=== PATIENT | female | born 2000 | race Caucasian/White ===

== ENCOUNTER → 2020-05-12 16:10 | Outpatient (CLI) | payer BC, SELFPAY ==
--- NOTE | 2020-05-12 16:12 | DI.RAD.S_ITS ---
PROCEDURE: XR ANKLE RT MIN 3V INDICATIONS: right ankle pain TECHNIQUE: 3 views of the ankle were acquired. COMPARISON: None. FINDINGS: Bones: No fractures or dislocations. Ankle mortise is normally aligned. No suspicious bony lesions. Soft tissues: No tibiotalar joint effusion. Achilles tendon appears normal. IMPRESSION: No acute ankle fracture or dislocation. Dictated by: Ozzy Francois M.D. on 05/12/2020 at 16:26 Approved by: Ozzy Francois M.D. on 05/12/2020 at 16:27
== END ==
PROVIDERS: Referring Provider Physician Assistant; Visit Provider Physician Assistant
DX: M25.571 Pain in right ankle and joints of right foot (principal)
CPT/HCPCS: 73610

== ENCOUNTER → 2021-05-25 09:24 | Outpatient (CLI) | payer BC, SELFPAY ==
[2021-05-25 10:12] LABS: COVID19 -Nasal RAPID Negative (Negative)
== END ==
PROVIDERS: Visit Provider Nurse Practitioner Family
DX: Z20.822 Contact with and (suspected) exposure to COVID-19 (principal)
CPT/HCPCS: 87635

== ENCOUNTER → 2023-09-15 15:25 | Outpatient (CLI) | payer BC, SELFPAY ==
[2023-09-15 20:15] LABS: Appearance Urine UA CLEAR; Bilirubin Urine UA NEGATIVE (NEGATIVE); Color Urine UA YELLOW; Glucose Urine UA NEGATIVE (Negative); Ketones Urine UA NEGATIVE (NEGATIVE); Leukocyte Esterase Urine UA NEGATIVE (NEGATIVE); Nitrite Urine UA NEGATIVE (Negative); Occult Blood Urine UA NEGATIVE (Negative); Protein Urine UA NEGATIVE (Negative); Specific Gravity Urine UA 1.025 (1.000-1.035); Urobilinogen Urine UA 0.2 E.U./dL (0.2)
== END ==
PROVIDERS: Visit Provider Student in an Organized Health Care Education/Training Program
DX: Z34.80 Encounter for supervision of other normal pregnancy, unspecified trimester (principal)
CPT/HCPCS: 81003; 87086

== ENCOUNTER → 2023-09-15 16:36 | Outpatient (CLI) | payer BC, SELFPAY ==
--- NOTE | 2023-09-15 16:37 | DI.US.S_ITS ---
PROCEDURE: US OB <= 14 WEEKS FETUS INDICATIONS: Dating US OUTSIDE/PRIOR DATING DATA: Last menstrual period (LMP): 07/09/2023. LMP-based estimated date of delivery (GUY): 04/14/2024. First dating scan (date and location): 09/15/2023. Estimated date of delivery (GUY) from first dating scan: 04/12/2024. TECHNIQUE: Real-time scanning was performed of the fetus and maternal pelvic organs, with image documentation. Endovaginal scanning was also performed to better visualize the fetus and maternal ovaries. COMPARISON: None. FINDINGS: Embryo: A live IUP is present. The estimated gestational age is 10 weeks 0 day based on crown-rump length. A normal appearing yolk sac is present. Heart rate: 173 Maternal organs: There is a 2.2 cm simple cyst in right ovary. A 4.6 cm simple cyst is seen in the left ovary. Both ovaries demonstrate vascularity on Doppler ultrasound. IMPRESSION: 1. A single living intrauterine gestation with an estimated gestational age of 10 weeks 0 day. Ultrasound dating concordant with clinical dating. 2. Bilateral simple cysts in ovaries. We strive to produce accurate, complete, and clear reports of imaging services. To assist us in improving patient care, this report was composed using standard report templates and voice recognition software. Therefore, it may contain abnormal punctuation, insertions and/or omissions. Occasional wrong-word or sound-alike substitutions may occur. Though we review the report and make efforts to correct it, we do recommend that the report be read carefully in proper context to recognize any text inaccuracies. Dictated by: María Elena Cooper M.D. on 09/16/2023 at 11:32 Approved by: María Elena Cooper M.D. on 09/16/2023 at 11:37
== END ==
PROVIDERS: Referring Provider Student in an Organized Health Care Education/Training Program; Visit Provider Student in an Organized Health Care Education/Training Program
DX: N83.292 Other ovarian cyst, left side; O34.81 Maternal care for other abnormalities of pelvic organs, first trimester; N83.291 Other ovarian cyst, right side; Z3A.10 10 weeks gestation of pregnancy
CPT/HCPCS: 76801; 76817; 81003; 87086; 93976

== ENCOUNTER → 2023-10-18 10:30 | Outpatient (CLI) | payer BC, SELFPAY ==
[2023-10-18 12:03] LABS: Add Manual Diff / Slide Review NO; Basophils Absolute Auto 0 /uL (0-100); Basophils Percent Auto 0.4 % (0-2); Eosinophils Absolute Auto 200 /uL (0-450); Eosinophils Percent Auto 1.8 % (2-4); Hematocrit 34.9 % (36-46); Lymphocytes Absolute Auto 2300 /uL (1100-4500); Mean Corpuscular HGB Conc 34.4 % (30-36); Mean Corpuscular Volume 78.4 fL (80-100); Monocytes Absolute Auto 500 /uL (0-900); Neutrophils Absolute Auto 8500 /uL (1500-7000); Neutrophils Percent Auto 73.8 % (50-75); Platelet Count 309 X10^3/uL (150-400); Red Blood Cell Count 4.45 X10^6/uL (4.0-5.2); White Blood Cell Count 11.6 X10^3/uL (4.5-11.0)
[2023-10-18 13:03] LABS: Alanine Aminotransferase 21 IU/L (<35); Albumin 3.9 g/dL (3.5-5.0); Alkaline Phosphatase 77 U/L (38-126); Aspartate Aminotransferase 24 IU/L (14-36); BUN Creatinine Ratio 12.3 (6-22); Bilirubin Total 0.4 mg/dL (0.2-1.3); Blood Urea Nitrogen 8 mg/dL (7-17); Calcium 9.5 mg/dL (8.4-10.2); Carbon Dioxide 23 mmol/L (22-32); Chloride 104 mmol/L (98-107); Estimated Glomerular Filt Rate > 60 mL/min (>60); Globulin 3.9 g/dL (1.7-4.1); Glucose 96 mg/dL (70-100); HEMOLYSIS < 15 (0-50); Potassium 3.7 mmol/L (3.4-5.1); Sodium 136 mmol/L (137-145); Total Protein 7.8 g/dL (6.3-8.2)
[2023-10-18 13:34] LABS: Urine Chlamydia NOT DETECTED; Urine N gonorrhoeae NOT DETECTED
[2023-10-19 05:51] LABS: RPR Screen Non Reactive (Non Reactive)
[2023-10-19 09:17] LABS: Varicella IgG Antibody 292 index (Immune >165)
[2023-10-20 16:14] LABS: HIV 1 & 2 Ab/Ag 4th Gen Combo NEGATIVE (NEGATIVE); Hep C Virus Ab w/Reflex Quant NEGATIVE s/c (NEGATIVE); Hepatitis B Surface Antigen NEGATIVE s/c (NEGATIVE); Rubella Antibody IgG 47.6 IU/mL (>15)
== END ==
LOC: LAB 10:32
PROVIDERS: Referring Provider Student in an Organized Health Care Education/Training Program; Visit Provider Student in an Organized Health Care Education/Training Program
DX: O10.919 Unspecified pre-existing hypertension complicating pregnancy, unspecified trimester (principal); Z3A.10 10 weeks gestation of pregnancy; Z13.79 Encounter for other screening for genetic and chromosomal anomalies; Z31.438 Encounter for other genetic testing of female for procreative management; Z36.0 Encounter for antenatal screening for chromosomal anomalies
CPT/HCPCS: 36415; 80053; 80055; 86787; 86803; 86850; 86900; 86901; 87389; 87491; 87591

== ENCOUNTER → 2023-11-28 12:46 | Outpatient (CLI) | payer OTHER, MEDICAID, SELFPAY ==
[2023-11-28 13:56] LABS: Add Manual Diff / Slide Review NO; Basophils Absolute Auto 0 /uL (0-100); Basophils Percent Auto 0.3 % (0-2); Eosinophils Absolute Auto 200 /uL (0-450); Eosinophils Percent Auto 1.7 % (2-4); Hematocrit 34.2 % (36-46); Hemoglobin 11.3 g/dL (12.0-16.0); Lymphocytes Absolute Auto 2600 /uL (1100-4500); Lymphocytes Percent Auto 20.6 % (25-40); Mean Corpuscular HGB Conc 33.2 % (30-36); Mean Corpuscular Hemoglobin 25.9 PG (26-34); Mean Corpuscular Volume 77.8 fL (80-100); Monocytes Absolute Auto 500 /uL (0-900); Monocytes Percent Auto 4.3 % (3-14); Neutrophils Absolute Auto 9100 /uL (1500-7000); Neutrophils Percent Auto 73.1 % (50-75); Platelet Count 308 X10^3/uL (150-400); Red Blood Cell Count 4.39 X10^6/uL (4.0-5.2); White Blood Cell Count 12.4 X10^3/uL (4.5-11.0)
[2023-11-28 14:23] LABS: Alanine Aminotransferase 16 IU/L (<35); Albumin 3.5 g/dL (3.5-5.0); Alkaline Phosphatase 94 U/L (38-126); Aspartate Aminotransferase 17 IU/L (14-36); BUN Creatinine Ratio 8.3 (6-22); Bilirubin Total 0.4 mg/dL (0.2-1.3); Blood Urea Nitrogen 6 mg/dL (7-17); Calcium 9.1 mg/dL (8.4-10.2); Carbon Dioxide 25 mmol/L (22-32); Chloride 107 mmol/L (98-107); Estimated Glomerular Filt Rate > 60 mL/min (>60); Globulin 3.4 g/dL (1.7-4.1); Glucose 78 mg/dL (70-100); HEMOLYSIS < 15 (0-50); Potassium 3.9 mmol/L (3.4-5.1); Sodium 137 mmol/L (137-145); Total Protein 6.9 g/dL (6.3-8.2)
[2023-11-28 15:50] LABS: Creatinine Urine Random 134.6 mg/dL; Protein (Total) Urine Random 15 mg/dL (0-12); Protein Creatinine Ratio Urine 0.11 GRAM/24H
== END ==
PROVIDERS: Referring Provider Family Medicine; Visit Provider Family Medicine
DX: O10.919 Unspecified pre-existing hypertension complicating pregnancy, unspecified trimester (principal)
CPT/HCPCS: 36415; 80053; 82570; 84156; 85025

== ENCOUNTER → 2023-12-07 11:56 | Outpatient (CLI) | payer OTHER, MEDICAID, SELFPAY ==
--- NOTE | 2023-12-07 11:57 | DI.US.S_ITS ---
PROCEDURE: US OB >= 14 WEEKS FETUS INDICATIONS: ANATOMY OUTSIDE/PRIOR DATING DATA: Last menstrual period (LMP): 07/09/2023. LMP-based estimated date of delivery (GUY): 05/12/2024. First dating scan (date and location): 09/15/2023. Estimated date of delivery (GUY) from first dating scan: 04/12/2024. TECHNIQUE: Real-time scanning was performed of the fetus, with image documentation and biometric measurements. COMPARISON: [facility], OB <= 14 WEEKS FETUS, 09/15/2023, 16:44. FINDINGS: General: A single living intrauterine gestation is present. Presentation: Vertex. Placenta: Placental position is anterior , without previa. Amniotic fluid index: 19 cm, normal range is 5-24 cm. Single deepest vertical pocket is 6.1 cm. heart rate: 152 beats per minute. Maternal cervical canal: 4.1 cm long. Normal lower limit is 2.5 cm. biometrics: Biparietal diameter: 5.2 cm 21 weeks 5 days Head circumference: 19.5 cm 21 weeks 5 days Abdominal circumference: 17.8 cm 22 weeks 4 days Femur length: 3.7 cm 21 weeks 5 days Clinically estimated gestational age: 21 weeks 4 days Composite gestational age from present scan: 22 weeks 0 days Estimated weight and percentile: 480 g, 75th percentile Anatomic survey: Neuro: Ventricles are non-dilated at less than 10 mm. Cisterna magna is normal at 3-11 mm. Cerebellum is normal in size and morphology. Nuchal skin fold: Normal at less than 6 mm between 14-21 weeks gestational age. Face: Nose and lips, facial profile are not well seen. Spine: No evidence for spina bifida. Heart: 4-chambered heart and outflow tracts are suboptimally visualized. Diaphragm: Diaphragm is intact. Stomach: Left-sided stomach is present. Kidneys: No hydronephrosis. Normal is less than 5 mm in 2nd trimester, less than 7 mm in 3rd trimester. Cord: 3-vessel cord has orthotopic insertion. Bladder: Normal in size. Extremities: All 4 extremities identified. IMPRESSION: Single live intrauterine with gestational age today of 22 weeks 0 days. Nose/lips/facial profile as well as 4 chambered heart/outflow tracts are not well seen. Recommend follow-up imaging for further evaluation. We strive to produce accurate, complete, and clear reports of imaging services. To assist us in improving patient care, this report was composed using standard report templates and voice recognition software. Therefore, it may contain abnormal punctuation, insertions and/or omissions. Occasional wrong-word or sound-alike substitutions may occur. Though we review the report and make efforts to correct it, we do recommend that the report be read carefully in proper context to recognize any text inaccuracies. Dictated by: Theresa Fiore M.D. on 12/07/2023 at 20:06 Approved by: Theresa Fiore M.D. on 12/07/2023 at 20:09
== END ==
PROVIDERS: Referring Provider Student in an Organized Health Care Education/Training Program; Visit Provider Student in an Organized Health Care Education/Training Program
DX: Z36.89 Encounter for other specified antenatal screening (principal); Z3A.22 22 weeks gestation of pregnancy
CPT/HCPCS: 76811

== ENCOUNTER 2023-12-29 12:53 | Outpatient (CLI) | payer OTHER, MEDICAID, SELFPAY ==
[2023-12-29 13:20] LABS: Appearance Urine UA SL CLOUDY; Bilirubin Urine UA NEGATIVE (NEGATIVE); Color Urine UA YELLOW; Glucose Urine UA NEGATIVE (Negative); Ketones Urine UA NEGATIVE (NEGATIVE); Leukocyte Esterase Urine UA NEGATIVE (NEGATIVE); Nitrite Urine UA NEGATIVE (Negative); Occult Blood Urine UA NEGATIVE (Negative); Protein Urine UA NEGATIVE (Negative); Urobilinogen Urine UA 0.2 E.U./dL (0.2)
[2023-12-29 13:28] LABS: Bacteria Urine Moderate (10-30); Culture Indicated Urine Cult Not Indicated; RBC Urine 0-1/HPF (0-5/HPF); Squamous Epithelial Cell Urine 10-30 /HPF (0-5/HPF); Urine Volume 10mL (spun); WBC Urine 0-1/HPF (0-5/HPF)
--- NOTE | 2023-12-29 13:36 | PM.OBTRLD ---
Visit Information Visit Information Date of evaluation: 12/29/23 Primary OB Provider: Rita Armstrong On-call OB Provider: Manuel Chirinos Reason for Evaluation: Yes other Comments/Additional reasons for admission: Sharp LLQ pain since awaking this AM. No bleeding, cramping. Good FM. No GI symptoms aside from mild nausea this AM which isn't unusual. + NL BM earlier today didn't affect the LLQ pain. 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 [facility] Medical History (Updated 03/18/24 @ 10:44 by Rita Armstrong MD) Gastroenteritis Depression Anxiety Acid reflux Concussion Blood in stool Right ankle sprain Adopted Surgical History (Updated 08/22/23 @ 08:11 by Alecia Lo, RN) [place] teeth extracted Family History (Updated 08/22/23 @ 09:04 by Alecia Lo, RN) Sister Asthma Food allergy Mother DVT (deep venous thrombosis) Social History (Updated 05/16/20 @ 09:52 by Pao Champion PA-C) marital status: number of children: 0 household members: spouse lives independently: Yes caregiver/support person: No housing: apartment pets and animals: Yes (3 cats, is managing litter boxes) education level: college occupational status: employed current occupational exposures/hazards: Yes special adrian needs: No travel history: recent seatbelt use: always helmet use: Yes water heater temp set < 120 deg: Yes working smoke detector in home: Yes fire extinguisher in home: Yes carbon monox detector in home: Yes firearms in home: No do you feel safe at home: Yes Smoking Status: Former smoker quit status: considering quitting second hand exposure: Yes ( smokes MJ and vapes outdoors) alcohol intake: former substance use type: marijuana and crack/cocaine during the past year weight has: increased > 10 lbs well-balanced diet: rarely or never daily servings fruits/ve-1 caffeine: Yes (Mostly decaf coffee in AM) Type(s) of exercise: none additional social history: encouraged to apply for [facility] Exam GI Inspection: normal to inspection (Gravid) Palpation: soft and tender (Localized, non-radiating, mild left cornu, duplicates pain) Objective Labs Labs: Laboratory Results - last 24 hr 12/29/23 13:10 Urine Color Yellow Urine Appearance Sl cloudy Urine pH 6.0 Ur Specific [place] 1.020 Urine Protein Negative Urine Glucose (UA) Negative Urine Ketones Negative Urine Occult Blood Negative Urine Nitrate Negative Urine Bilirubin Negative Urine Urobilinogen 0.2 Ur Leukocyte Esterase Negative Urine RBC 0-1/hpf Urine WBC 0-1/hpf Ur Squamous Epith Cells 10-30 /hpf H Urine Bacteria Moderate (10-30) H Ur Culture Indicated? Cult not indicated Vol Urine Centrifuged 10ml (spun) Diagnosis, Plan/Disposition Plan/Disposition Plan: Patient's pain is most consistent with round ligament pain. There has no evidence of ongoing uterine irritability or contractions activity. Patient reassured and will closely follow-up as scheduled with her primary obstetrical provider. OB Disposition: home
--- NOTE | 2023-12-29 13:42 | DI.US.S_ITS ---
PROCEDURE: US OB LIMITED INDICATIONS: growth/biometry/placenta-L lower quadrant R/O abnormal find OUTSIDE/PRIOR DATING DATA: Last menstrual period (LMP): July 09, 2023 LMP-based estimated date of delivery (GUY): April 14, 2024. First dating scan (date and location): September 15, 2023. Estimated date of delivery (GUY) from first dating scan: April 12, 2024 TECHNIQUE: Real-time scanning was performed of the fetus, with image documentation and biometric measurements. Biophysical profile was also obtained. Endovaginal scanning: Not performed COMPARISON: [facility], OB <= 14 WEEKS FETUS, 09/15/2023, 16:44. [facility] OB >= 14 WEEKS FETUS, 12/07/2023, 12:23. FINDINGS: General: A single living intrauterine gestation is present. Presentation: Vertex. Placenta: Placental position is anterior , without previa. Amniotic fluid index: 18.6 cm, normal range is 5-24 cm. Single deepest vertical pocket is 6.0 cm. heart rate: 133 beats per minute. Maternal cervical canal: 4.0 cm long. Normal lower limit is 2.5 cm. biometrics: Biparietal diameter: 6.0 cm, 24 weeks 4 days Head circumference: 22.9 cm, 25 weeks 0 days Abdominal circumference: 22.5 cm, 26 weeks 6 days Femur length: 4.5 cm, 25 weeks 0 days Clinically estimated gestational age: 24 weeks 5 days Composite gestational age from present scan: 25 weeks 3 days Estimated weight and percentile: 862 g, 88% Miscellaneous: Simple left adnexal cyst is redemonstrated and measures 5.5 x 4.2 x 2.8 cm on the current study. This measured 4.6 x 3.0 x 4.5 cm on the study dated September 15, 2023. The right ventricular outflow tack is not well characterized on the current study. IMPRESSION: 1. Single live intrauterine gestation with a composite gestational age of 25 weeks, 3 days which is concordant with dates by initial scan. 2. Left adnexal cyst redemonstrated. 3. Persistently poor characterization of the right ventricular outflow tract. We strive to produce accurate, complete, and clear reports of imaging services. To assist us in improving patient care, this report was composed using standard report templates and voice recognition software. Therefore, it may contain abnormal punctuation, insertions and/or omissions. Occasional wrong-word or sound-alike substitutions may occur. Though we review the report and make efforts to correct it, we do recommend that the report be read carefully in proper context to recognize any text inaccuracies. July 09, 2023, Dictated by: Brooke White M.D. on 12/29/2023 at 16:07 Approved by: Brooke White M.D. on 12/29/2023 at 16:12
== END 2023-12-29 14:45 | disposition home or self-care (01) ==
LOC: LABOR 13:28 → OB 01-02 06:08
PROVIDERS: Referring Provider Obstetrics & Gynecology; Visit Provider Obstetrics & Gynecology
DX: O26.892 Other specified pregnancy related conditions, second trimester (principal); R10.32 Left lower quadrant pain; Z3A.24 24 weeks gestation of pregnancy
CPT/HCPCS: 59025; 76815; 81001; G0378; G0379

== ENCOUNTER → 2024-01-16 08:44 | Outpatient (CLI) | payer OTHER, MEDICAID, SELFPAY ==
[2024-01-16 11:50] LABS: GTT (PREG) 1 Hour PP 50gm Dose 167 mg/dL (76-139)
== END ==
PROVIDERS: Referring Provider Family Medicine; Visit Provider Family Medicine
DX: Z34.80 Encounter for supervision of other normal pregnancy, unspecified trimester (principal)
CPT/HCPCS: 82950

== ENCOUNTER → 2024-01-18 08:01 | Outpatient (CLI) | payer OTHER, MEDICAID, SELFPAY ==
[2024-01-18 09:00] LABS: Glucose Fasting Gestational 98 mg/dL (76-95)
[2024-01-18 09:02] LABS: Alanine Aminotransferase 16 IU/L (<35); Albumin 3.2 g/dL (3.5-5.0); Alkaline Phosphatase 125 U/L (38-126); Aspartate Aminotransferase 19 IU/L (14-36); BUN Creatinine Ratio 7.8 (6-22); Bilirubin Total 0.4 mg/dL (0.2-1.3); Blood Urea Nitrogen 5 mg/dL (7-17); Carbon Dioxide 23 mmol/L (22-32); Chloride 108 mmol/L (98-107); Estimated Glomerular Filt Rate > 60 mL/min (>60); Globulin 3.2 g/dL (1.7-4.1); Glucose 97 mg/dL (70-100); HEMOLYSIS < 15 (0-50); Potassium 4.1 mmol/L (3.4-5.1); Sodium 137 mmol/L (137-145); Total Protein 6.4 g/dL (6.3-8.2)
[2024-01-18 09:08] LABS: Add Manual Diff / Slide Review NO; Basophils Absolute Auto 0 /uL (0-100); Basophils Percent Auto 0.5 % (0-2); Eosinophils Absolute Auto 100 /uL (0-450); Eosinophils Percent Auto 1.1 % (2-4); Hematocrit 32.9 % (36-46); Lymphocytes Absolute Auto 1900 /uL (1100-4500); Lymphocytes Percent Auto 18.2 % (25-40); Mean Corpuscular HGB Conc 33.3 % (30-36); Mean Corpuscular Hemoglobin 26.2 PG (26-34); Mean Corpuscular Volume 78.5 fL (80-100); Monocytes Absolute Auto 400 /uL (0-900); Monocytes Percent Auto 3.8 % (3-14); Neutrophils Absolute Auto 7800 /uL (1500-7000); Neutrophils Percent Auto 76.4 % (50-75); Platelet Count 291 X10^3/uL (150-400); Red Blood Cell Count 4.19 X10^6/uL (4.0-5.2); Red Cell Distribution Width 15.1 % (11.6-14.8); White Blood Cell Count 10.3 X10^3/uL (4.5-11.0)
[2024-01-18 10:26] LABS: Glucose 1 Hour Gest 180 mg/dL (76-180)
[2024-01-18 10:55] LABS: Glucose 2 Hour Gest 172 mg/dL (76-155)
[2024-01-18 11:04] LABS: Creatinine Urine Random 194.4 mg/dL; Protein (Total) Urine Random 16 mg/dL (0-12); Protein Creatinine Ratio Urine 0.08 GRAM/24H
[2024-01-18 11:28] LABS: Glucose Tol Interp,Gestational INTERPRETATION
[2024-01-18 12:06] LABS: Glucose 3 Hour Gest 129 mg/dL (76-140)
== END ==
PROVIDERS: Referring Provider Family Medicine; Visit Provider Family Medicine
DX: O10.919 Unspecified pre-existing hypertension complicating pregnancy, unspecified trimester (principal); O99.810 Abnormal glucose complicating pregnancy
CPT/HCPCS: 36415; 80053; 82570; 82951; 82952; 84156; 85025

== ENCOUNTER → 2024-02-01 09:55 | Outpatient (CLI) | payer BC, OTHER, MEDICAID, SELFPAY ==
--- NOTE | 2024-02-01 10:02 | DIAB.GDA ---
Addendum entered by Estella Yadav 02/08/24 12:56: Time [id number] Original Note: Initial Gestational Diabetes Assessment Name: Rosalind Gonzalez Date: 02/01/24 Time: 10 Dx: Gestational Diabetes Provider: Nathaniel GUY: 04/15/24 Weeks: 10 March presents for initial GDM visit accompanied with , Higinio. Has questions about wt gain during . snack through the day, no set meals Reports high CHO intake, enjoys juice, milk, and soda Notices BG are elevated Not heating up cold cuts since she is unsure why this is pertinent On modified bedrest from work per report Reports some potential pica symptom, craving chewing on ice. States her PNV does not have iron and she often forgets to take her separate iron supplement. some low Hct last labs. Receives [facility] services Has questions about elevated bg. Diet Recall: coffee with creamer 9-11a: maria luisa chip banana bread with coffee OR Bagel with cream cheese OR yogurt with granola 12-1p: quesadilla OR hot pocket 3p; gold fish crackers or watermelon or sweetened yogurt with honey oat granola 6p: may not have dinner if lots of snacks in afternoon OR pizza x 2 with soda OR rice x 1c with chicken OR quesadilla sn: nothing or ice cream or Popsicles water x 24-32oz, coffee x 1-2c, soda, apple juice 8oz Anthropometrics: Ht: 67 Wt: 263# 01/2024 at OB Prepregnancy wt: 250# Physical Activity: No activity with hip pain during . Sciatica. Has referral for PT, but the place does not take her insurance. Most activity is chores and ADLs. Notices increase in BP with increased activity. Plans to call insurance for a PT office that accepts her coverage. Wants to get more movement to help with labor. Self-Monitoring Blood Glucose: None for review today. Reports starting checks last Tuesday. Checks FBG and 2 hour pc. Reports frequent elevations with FBG in the low 100s and after meal readings often 120-125mg/dl. Today's FBG was 112mg/dl. Predicted very high CHO through the day. Hoping with reduction in carb intake BG will come down. FBG may be a challenge. Will cont to evaluate with f/u in one week. Diabetes Medications: None Pertinent Labs: screen 167 H OGTT 98 H, 180, 172 H, 129 Nutrition Rx: Carbohydrates: Meal: 45-60g lunch and dinner; 30g breakfast Snack: 15-30g Nutrition Diagnosis: Altered nutrition related lab value r/t GDM dx aeb recent OGTT Excessive CHO intake r/t nutrition knowledge deficit and new dx aeb pt report, diet recall and OGTT Undesirable food choices r/t nutrition related knowledge deficit regarding Listeria aeb pt report Physical inactivity r/t pain and increased bp with activity aeb pt report Intervention: This participant was very receptive. Provided appropriate educational handouts. Discussed the following topics: GDM pathophysiology and impact of hyperglycemia on mom and baby Risk for T2DM for mom and baby in the future Ways to reduce risk T2DM Plate Method, meal timing, carb counting, pairing macronutrients and spreading out CHO for better BG management Blood glucose goals (FBG: <95 and 1 hour <140 mg/dL or 2 hour <120mg/dl); importance of checking 4x per day (FBG and pc) Impact of macronutrients on blood glucose Recommended servings for carbohydrates at meals and snacks Brainstormed appropriate meal plan based on her food preferences Role of physical activity and following provider guidelines for safety Encouraged her to call insurance with PT options Discussed food safety during and rationale Reviewed importance of iron supplement during Goals: Avoid sugar beverages Follow nutrition plan with lower CHO Take iron supplement Pair CHO with pro Bring BG next visit Follow-up: RIANNA SCHUSTER follow-up in one week for BG review and continued nutrition therapy. Estella Yadav RDN, MARIELY Certified Diabetes Care and [employer] T: [phone] F: [phone] [email or web address] Thank you for this referral
== END ==
PROVIDERS: Referring Provider Family Medicine
DX: O24.419 Gestational diabetes mellitus in pregnancy, unspecified control (principal); Z3A.29 29 weeks gestation of pregnancy; Z71.3 Dietary counseling and surveillance
CPT/HCPCS: 97802

== ENCOUNTER → 2024-02-08 10:30 | Outpatient (CLI) | payer OTHER, MEDICAID, SELFPAY ==
--- NOTE | 2024-02-08 13:06 | DIAB.GDFU ---
Follow-up Gestational Diabetes Assessment Name: Fantasma JayFebruary Date: 02/08/24 Time: 12-1230p Dx: Gestational Diabetes Provider: Nathaniel GUY: 04/15/24 Weeks: 30-31 Presents for GDM f/u virtually using [facility] Drinking more water Has been trying to avoid sugar beverages. Cut out soda. Limiting apple juice (4-8oz x 1x per day). Coffee in the morning with creamer--limiting portion. Trying to eat protein with CHO and reduced Cho portions. Picked up some nuts for increased protein. Iron supplement currently bathroom cupboard and she forgets to take it. PNV by bedside. Will switch to Malay yogurt once Yoplait is out. Adds ? c granola. Diet Recall: coffee with creamer 9-11a: 1 slice banana bread OR yogurt and granola OR cream of wheat 12-1p: quesadilla with one tortilla with couple frozen grapes 3p; yogurt and granola OR apple and PB 6p: pizza x 2 slices OR 1/2c rice and green beans with chicken OR 1-1.5c chili with beef with hot dogs, cheese, sour cream OR 1c pastaroni sn: small size otter pops x 2 (7g) pairing with seeds and nuts Avoiding ice cream Anthropometrics: Ht: 67 Wt: 263# 01/2024 at OB Prepregnancy wt: 250# Physical Activity: No activity with hip pain during . Sciatica. Has referral for PT. Self-Monitoring Blood Glucose: FBG and 2-3 hour pc. All but one reading above FBG goal. Prior week reported all over 95mg/dl as well. Likely benefit from DM medication management. RD will message provider. Hesitant at first about medication, however after discussion she is open to this. Feels confident about potential for insulin injections after RD demo. 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 Provided appropriate educational handouts. Discussed the following topics: Recent blood sugar results and impact of food and hormones Review of macronutrient recommendations during Discussed medication during to manage GDM Demonstrated insulin injections in case this is the route she goes Reviewed impact of sugar beverages on BG Brief review of low blood sugar risks with insulin Encouraged strategies for taking iron supplement Discussed importance of taking pc BG at 1 or 2 hour, not 3 hour Goals: Avoid sugar beverages- improved Follow nutrition plan with lower CHO- improved Take iron supplement- in progress Pair CHO with pro- met Bring BG next visit- met Move iron supplement to bedside and take daily- new Be sure to check BG at 1 or 2 hours- new Set an alarm for BG checks new Next time feeling ill, check BG and BP- new Make note in log book when having yogurt and granola- new Follow-up: RIANNA SCHUSTER follow-up in one week. RD would rec insulin therapy. Messaged provider BG results from the last week. Will f/u with Rosalind next for BG checks and DM medication management. Estella Yadav RDN, JOSEES Certified Diabetes Care and [employer] T: [phone] F: [phone] [email or web address] Thank you for this referral
== END ==
PROVIDERS: Referring Provider Family Medicine
DX: O24.419 Gestational diabetes mellitus in pregnancy, unspecified control (principal); Z3A.30 30 weeks gestation of pregnancy; Z71.3 Dietary counseling and surveillance
CPT/HCPCS: 97803

== ENCOUNTER → 2024-02-17 08:06 | Outpatient (CLI) | payer OTHER, MEDICAID, SELFPAY ==
--- NOTE | 2024-02-17 08:07 | DI.US.S_ITS ---
PROCEDURE: US OB LIMITED INDICATIONS: growth u/s for htn OUTSIDE/PRIOR DATING DATA: Last menstrual period (LMP): 07/01/2023. LMP-based estimated date of delivery (GUY): 04/14/2024. First dating scan (date and location): 09/15/2023. Estimated date of delivery (GUY) from first dating scan: 04/12/2024. TECHNIQUE: Real-time scanning was performed of the fetus, with image documentation and biometric measurements. Endovaginal scanning: Not performed COMPARISON: [facility], OB LIMITED, 12/29/2023, 14:03. FINDINGS: General: A single living intrauterine gestation is present. Presentation: Vertex. Placenta: Placental position is anterior , without previa. Amniotic fluid index: 13.1 cm, normal range is 5-24 cm. Single deepest vertical pocket is 4.9 cm. heart rate: 144 beats per minute. Maternal cervical canal: 3.4 cm long. Normal lower limit is 2.5 cm. biometrics: Biparietal diameter: 8.1 cm, 32 weeks 2 days Head circumference: 30.3 cm, 33 weeks 5 days Abdominal circumference: 30.8 cm, 34 weeks 5 days Femur length: 6.5 cm, 33 weeks 4 days Clinically estimated gestational age: 33 weeks 6 days Composite gestational age from present scan: 33 weeks 4 days Estimated weight and percentile: 2334 g, 95th percentile Other: Not applicable. IMPRESSION: 1. Single live intrauterine consistent with 33 weeks and 6 days. 2. Estimated weight is in the 95th percentile. Macrosomia is not excluded and follow-up is recommended. We strive to produce accurate, complete, and clear reports of imaging services. To assist us in improving patient care, this report was composed using standard report templates and voice recognition software. Therefore, it may contain abnormal punctuation, insertions and/or omissions. Occasional wrong-word or sound-alike substitutions may occur. Though we review the report and make efforts to correct it, we do recommend that the report be read carefully in proper context to recognize any text inaccuracies. Dictated by: Scott Quezada M.D. on 02/17/2024 at 9:09 Approved by: Scott Quezada M.D. on 02/17/2024 at 9:22
[2024-02-17 08:56] LABS: Add Manual Diff / Slide Review NO; Basophils Absolute Auto 100 /uL (0-100); Basophils Percent Auto 0.6 % (0-2); Eosinophils Absolute Auto 200 /uL (0-450); Eosinophils Percent Auto 1.8 % (2-4); Hematocrit 31.4 % (36-46); Hemoglobin 10.5 g/dL (12.0-16.0); Lymphocytes Absolute Auto 2100 /uL (1100-4500); Lymphocytes Percent Auto 17.9 % (25-40); Mean Corpuscular HGB Conc 33.4 % (30-36); Mean Corpuscular Hemoglobin 25.5 PG (26-34); Mean Corpuscular Volume 76.3 fL (80-100); Monocytes Absolute Auto 500 /uL (0-900); Monocytes Percent Auto 4.4 % (3-14); Neutrophils Absolute Auto 9000 /uL (1500-7000); Neutrophils Percent Auto 75.3 % (50-75); Platelet Count 275 X10^3/uL (150-400); Red Blood Cell Count 4.11 X10^6/uL (4.0-5.2); Red Cell Distribution Width 15.1 % (11.6-14.8); White Blood Cell Count 11.9 X10^3/uL (4.5-11.0)
[2024-02-17 09:35] LABS: Alanine Aminotransferase 16 IU/L (<35); Albumin 3.2 g/dL (3.5-5.0); Albumin Globulin Ratio 1.1 (1.0-2.8); Alkaline Phosphatase 142 U/L (38-126); Aspartate Aminotransferase 17 IU/L (14-36); BUN Creatinine Ratio 8.5 (6-22); Bilirubin Total 0.3 mg/dL (0.2-1.3); Blood Urea Nitrogen 6 mg/dL (7-17); Calcium 8.7 mg/dL (8.4-10.2); Carbon Dioxide 21 mmol/L (22-32); Chloride 110 mmol/L (98-107); Estimated Glomerular Filt Rate > 60 mL/min (>60); Glucose 118 mg/dL (70-100); HEMOLYSIS < 15 (0-50); Potassium 3.9 mmol/L (3.4-5.1); Sodium 136 mmol/L (137-145); Total Protein 6.2 g/dL (6.3-8.2)
[2024-02-17 11:41] LABS: Creatinine Urine Random 180.93 mg/dL; Protein (Total) Urine Random 18 mg/dL (0-12); Protein Creatinine Ratio Urine 0.09 GRAM/24H
[2024-02-21 07:21] LABS: Bile Acids 4.4 umol/L (0.0-10.0)
== END ==
PROVIDERS: Referring Provider Family Medicine; Visit Provider Family Medicine
DX: O10.913 Unspecified pre-existing hypertension complicating pregnancy, third trimester (principal); L29.9 Pruritus, unspecified; Z3A.33 33 weeks gestation of pregnancy; O99.891 Other specified diseases and conditions complicating pregnancy
CPT/HCPCS: 36415; 76815; 80053; 82239; 82570; 84156; 85025

== ENCOUNTER 2024-02-22 12:50 | Outpatient (CLI) | payer BC, OTHER, MEDICAID, SELFPAY ==
--- NOTE | 2024-02-22 13:20 | P.TNLD_ITS ---
Visit Information Visit Information Date of evaluation: 02/22/24 Primary OB Provider: Rita Armstrong Comments/Additional reasons for admission: 24yo at 32w3d here for NST for GDMA2, chronic HTN. No vaginal bleeding, LOF, contractions. Feeling baby move regularly. [facility] Medical History (Updated 02/10/24 @ 09:46 by Rita Armstrong MD) Depression Anxiety Acid reflux Concussion Blood in stool Right ankle sprain Adopted Surgical History (Updated 08/22/23 @ 08:11 by Alecia Lo, RN) [place] teeth extracted Family History (Updated 08/22/23 @ 09:04 by Alecia Lo, RN) Sister Asthma Food allergy Mother DVT (deep venous thrombosis) Social History (Updated 05/16/20 @ 09:52 by Pao Champion PA-C) marital status: number of children: 0 household members: spouse lives independently: Yes caregiver/support person: No housing: apartment pets and animals: Yes (3 cats, is managing litter boxes) education level: college (some college) occupational status: employed (cannabis production, 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) current occupational exposures/hazards: Yes special adrian needs: No travel history: recent (domestic only) seatbelt use: always helmet use: Yes water heater temp set < 120 deg: Yes working smoke detector in home: Yes fire extinguisher in home: Yes carbon monox detector in home: Yes firearms in home: No do you feel safe at home: Yes Smoking Status: Former smoker (working on quitting vaping) quit status: considering quitting (trying to quit) second hand exposure: Yes ( smokes MJ and vapes outdoors) alcohol intake: former (Hx excessive use, now much more moderate when not ) substance use type: marijuana (not recently) and crack/cocaine (~2 years ago, only a couple of times) during the past year weight has: increased > 10 lbs well-balanced diet: rarely or never daily servings fruits/ve-1 caffeine: Yes (Mostly decaf coffee in AM) Type(s) of exercise: none additional social history: encouraged to apply for [facility] Evaluation Evaluation Baseline heart rate: 130 Variability: Moderate (11-25) monitor accelerations: Present Monitor Decelerations: Absent Category of Tracing: Reactive Diagnosis, Plan/Disposition Final Diagnosis (1) Chronic hypertension affecting : Status: Acute (2) Gestational diabetes mellitus (GDM): Status: Acute Plan/Disposition Plan: 24yo at 32w3d here for NST for GDMA2, chronic HTN. NST reactive. Continue testing. OB Disposition: home
== END 2024-02-22 13:30 | disposition home or self-care (01) ==
LOC: LABOR 13:05 → OB 02-27 06:16
PROVIDERS: Referring Provider Family Medicine; Visit Provider Family Medicine
DX: O24.419 Gestational diabetes mellitus in pregnancy, unspecified control (principal); O10.913 Unspecified pre-existing hypertension complicating pregnancy, third trimester; Z3A.32 32 weeks gestation of pregnancy
CPT/HCPCS: 59025; G0378; G0379

== ENCOUNTER → 2024-02-24 16:15 | Outpatient (CLI) | payer OTHER, MEDICAID, SELFPAY ==
--- NOTE | 2024-02-24 17:42 | DIAB.GDFU ---
Follow-up Gestational Diabetes Assessment Name: Fantasma aJyFebruary Date: 02/24/24 Time: 440-6p Dx: Gestational Diabetes Provider: Nathaniel GUY: 04/15/24 Weeks: 32 Presents for GDM f/u with , Higin[facility]. Here today for insulin education. Also interested in CGM. Picked up NPH after difficulty with insurance coverage. Switching insurance currently. 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 Pharmacy did not have rx. Turns out she picked up at a different pharmacy than usual. Asked [facility] staff to resend rx to other pharmacy. Pharmacy confirmed received. Has not been checking BG as often due to stress of calling insurance companies and trying to get insulin. Ended up using coup Self-Monitoring Blood Glucose: FBG and 2-3 hour pc. Limited readings recently, but does report elevated FBG. Today FBG of 130mg/dl. Plans to start NPH BID today. Diabetes Medications: 5u NPH BID Pertinent Labs: screen 167 H OGTT 98 H, 180, 172 H, 129 Intervention: This participant was very receptive. Provided appropriate educational handouts. Discussed the following topics: Reviewed CGM use and equipment Discussed when to check blood sugars using finger stick Reviewed high and low blood sugar signs/symptoms and treatment options Provided education for self-administration of CGM placement Educated patient on alarm settings Discussed when to replace equipment and disposal Insulin education: how to inject, storing insulin, priming pen, timing of insulin, pen needles trouble shooting rx Hypoglycemia s/s and tx Goals: wear CGM apple picking supervisor pen needles Follow-up: RIANNA SCHUSTER follow-up in one week virtually and two weeks in person. Estella Yadav RDN, [facility] Certified Diabetes Care and Rubber Tubing Splicer T: [phone] F: [phone] [email or web address] Thank you for this referral
== END ==
DX: O24.414 Gestational diabetes mellitus in pregnancy, insulin controlled (principal); Z3A.32 32 weeks gestation of pregnancy; Z71.3 Dietary counseling and surveillance
CPT/HCPCS: G0108

== ENCOUNTER 2024-02-25 06:12 | Observation (INO) | payer OTHER, MEDICAID, SELFPAY ==
[2024-02-25] MEDS: LACTATED RINGERS 1,000 ML 1000 ML IV (07:15)
--- NOTE | 2024-02-25 08:25 | P.TNLD_ITS ---
Visit Information Visit Information Date of evaluation: 02/25/24 Primary OB Provider: Rita Armstrong On-call OB Provider: Kayla Abdi Reason for Evaluation: Yes other Comments/Additional reasons for admission: 24yo at 32w6d presents to triage for further eval of acute onset LLQ pain with associated n/v/diarrhea x4h prior to arrival. Primary OB Dr. Armstrong, course significant for class 3 obesity, A2GDM with suboptimal glycemic control secondary to difficulty obtaining insulin, known LGA fetus, new diagnosis CHTN at 14wga now on labetalol 300mg BID. Pt called on-call provider with description of symptoms and was advised to present to L&D for further evaluation. +FM, denies VB, LOF, dysuria. Denies recent sick contacts, no affected family members. States she checked her BG at home and it was 115 so she ate some peanut butter to bring it back up Vital Signs Vital Signs: BP 132/81 HR 115 RR 18 PFSH Medical History (Updated 02/25/24 @ 08:33 by Kayla Abdi MD) Gastroenteritis Depression Anxiety Acid reflux Concussion Blood in stool Right ankle sprain Adopted Surgical History (Updated 08/22/23 @ 08:11 by Alecia Lo RN) [place] teeth extracted Family History (Updated 08/22/23 @ 09:04 by Alecia Lo RN) Sister Asthma Food allergy Mother DVT (deep venous thrombosis) Social History (Updated 05/16/20 @ 09:52 by Pao Champion PA-C) marital status: number of children: 0 household members: spouse lives independently: Yes caregiver/support person: No housing: apartment pets and animals: Yes (3 cats, is managing litter boxes) education level: college (some college) occupational status: employed (cannabis production, 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) current occupational exposures/hazards: Yes special adrian needs: No travel history: recent (domestic only) seatbelt use: always helmet use: Yes water heater temp set < 120 deg: Yes working smoke detector in home: Yes fire extinguisher in home: Yes carbon monox detector in home: Yes firearms in home: No do you feel safe at home: Yes Smoking Status: Former smoker (working on quitting vaping) quit status: considering quitting (trying to quit) second hand exposure: Yes ( smokes MJ and vapes outdoors) alcohol intake: former (Hx excessive use, now much more moderate when not ) substance use type: marijuana (not recently) and crack/cocaine (~2 years ago, only a couple of times) during the past year weight has: increased > 10 lbs well-balanced diet: rarely or never daily servings fruits/ve-1 caffeine: Yes (Mostly decaf coffee in AM) Type(s) of exercise: none additional social history: encouraged to apply for [facility] Review of Systems Review of Systems ROS: Yes All systems reviewed with the patient and are negative except as otherwise documented Evaluation Evaluation Baseline heart rate: 130 Variability: Average (6-10) monitor accelerations: Present Monitor Decelerations: Absent Category of Tracing: Reactive Status: Category l Diagnosis, Plan/Disposition Final Diagnosis (1) Gestational diabetes mellitus (GDM): Status: Acute (2) Chronic hypertension affecting : Status: Acute Plan/Disposition Plan: Suspect viral vs reactive gastroenteritis Pain improved following gentle IVF hydration physical exam benign without concern for acute abdomen symptomatic management, strict precautions, f/u with primary OB as scheduled OB Disposition: home
== END 2024-02-25 08:30 | disposition home or self-care (01) ==
PROVIDERS: Admitting Provider Obstetrics & Gynecology; Referring Provider Obstetrics & Gynecology; Visit Provider Obstetrics & Gynecology
DX: O24.419 Gestational diabetes mellitus in pregnancy, unspecified control (principal); O26.893 Other specified pregnancy related conditions, third trimester; O99.213 Obesity complicating pregnancy, third trimester; E66.9 Obesity, unspecified; O36.63X0 Maternal care for excessive fetal growth, third trimester, not applicable or unspecified; O10.913 Unspecified pre-existing hypertension complicating pregnancy, third trimester; R10.32 Left lower quadrant pain; R11.2 Nausea with vomiting, unspecified; R19.7 Diarrhea, unspecified; Z3A.32 32 weeks gestation of pregnancy
CPT/HCPCS: 59025; 59050; 96360; G0378; G0379

== ENCOUNTER 2024-03-07 11:15 | Outpatient (CLI) | payer BC, OTHER, MEDICAID, SELFPAY ==
--- NOTE | 2024-03-07 11:46 | PM.OBTRLD ---
Visit Information Visit Information Date of evaluation: 03/07/24 Primary OB Provider: Rita Armstrong Comments/Additional reasons for admission: 24yo at 34w3d here for NST for GDMA2, chronic HTN. She is feeling her baby move regularly. No LOF, vaginal bleeding, contractions. [facility] Medical History (Updated 03/07/24 @ 17:40 by Rita Armstrong MD) Gastroenteritis Depression Anxiety Acid reflux Concussion Blood in stool Right ankle sprain Adopted Surgical History (Updated 08/22/23 @ 08:11 by Alecia Lo, RN) [place] teeth extracted Family History (Updated 08/22/23 @ 09:04 by Alecia Lo RN) Sister Asthma Food allergy Mother DVT (deep venous thrombosis) Social History (Updated 05/16/20 @ 09:52 by Pao Champion PA-C) marital status: number of children: 0 household members: spouse lives independently: Yes caregiver/support person: No housing: apartment pets and animals: Yes (3 cats, is managing litter boxes) education level: college occupational status: employed current occupational exposures/hazards: Yes special adrian needs: No travel history: recent seatbelt use: always helmet use: Yes water heater temp set < 120 deg: Yes working smoke detector in home: Yes fire extinguisher in home: Yes carbon monox detector in home: Yes firearms in home: No do you feel safe at home: Yes Smoking Status: Former smoker quit status: considering quitting second hand exposure: Yes ( smokes MJ and vapes outdoors) alcohol intake: former substance use type: marijuana and crack/cocaine during the past year weight has: increased > 10 lbs well-balanced diet: rarely or never daily servings fruits/ve-1 caffeine: Yes (Mostly decaf coffee in AM) Type(s) of exercise: none additional social history: encouraged to apply for [facility] Evaluation Evaluation Baseline heart rate: 150 Variability: Moderate (11-25) monitor accelerations: Present Monitor Decelerations: Absent Category of Tracing: Reactive Diagnosis, Plan/Disposition Final Diagnosis (1) Gestational diabetes mellitus (GDM): Status: Acute (2) Chronic hypertension affecting : Status: Acute (3) 34 weeks gestation of : Status: Acute Plan/Disposition Plan: 24yo at 34w3d here for NST for GDMA2, chronic HTN. NST reactive. Continue testing. OB Disposition: home
== END 2024-03-07 11:45 | disposition home or self-care (01) ==
LOC: OB 03-08 08:21
PROVIDERS: Referring Provider Family Medicine; Visit Provider Family Medicine
DX: O24.419 Gestational diabetes mellitus in pregnancy, unspecified control (principal); O10.913 Unspecified pre-existing hypertension complicating pregnancy, third trimester; Z3A.34 34 weeks gestation of pregnancy
CPT/HCPCS: 59025; G0378; G0379

== ENCOUNTER 2024-03-14 08:00 | Observation (INO) | payer OTHER, MEDICAID, SELFPAY ==
[2024-03-14 08:46] LABS: Creatinine Urine Random 104.57 mg/dL; Protein (Total) Urine Random 19 mg/dL (0-12); Protein Creatinine Ratio Urine 0.18 GRAM/24H
== END 2024-03-14 08:38 | disposition home or self-care (01) ==
LOC: LABOR 08:01
PROVIDERS: Admitting Provider Family Medicine; Referring Provider Family Medicine; Visit Provider Family Medicine
DX: O24.913 Unspecified diabetes mellitus in pregnancy, third trimester (principal); O13.3 Gestational [pregnancy-induced] hypertension without significant proteinuria, third trimester; Z3A.35 35 weeks gestation of pregnancy; Z79.4 Long term (current) use of insulin
CPT/HCPCS: 59025; 82570; 84156; G0378; G0379

== ENCOUNTER → 2024-03-16 10:53 | Outpatient (CLI) | payer OTHER, MEDICAID, SELFPAY ==
--- NOTE | 2024-03-16 10:55 | DI.US.S_ITS ---
PROCEDURE: US OB FOLLOW UP INDICATIONS: growth US for cHTN, due around 03/06 OUTSIDE/PRIOR DATING DATA: Last menstrual period (LMP): 07/09/2023. LMP-based estimated date of delivery (GUY): 04/14/2024. The calculations are made using the clinical GUY of 04/14/2024. TECHNIQUE: Real-time scanning was performed of the fetus, with image documentation and biometric measurements. Endovaginal scanning: Not performed COMPARISON: None. FINDINGS: General: A single living intrauterine gestation is present. Presentation: Vertex. Placenta: Placental position is anterior , without previa. Amniotic fluid index: 18.6 cm, normal range is 5-24 cm. Single deepest vertical pocket is 6.0 cm. heart rate: 133 beats per minute. Maternal cervical canal: 4 cm long. Normal lower limit is 2.5 cm. biometrics: Biparietal diameter: 6 centimeter, 24 weeks 4 days Head circumference: 22.9 centimeters, 25 weeks 0 days Abdominal circumference: 22.5 centimeters, 26 weeks 6 days Femur length: 4.5 centimeters, 25 weeks 0 days Clinically estimated gestational age: 24 weeks 5 days Composite gestational age from present scan: 25 weeks 3 days Estimated weight and percentile: 862 grams, 88th percentile Other: Not applicable. IMPRESSION: Single living intrauterine at 24 weeks 5 days. GUY of 04/14/2024. Estimated weight of 862 grams, 88th percentile. We strive to produce accurate, complete, and clear reports of imaging services. To assist us in improving patient care, this report was composed using standard report templates and voice recognition software. Therefore, it may contain abnormal punctuation, insertions and/or omissions. Occasional wrong-word or sound-alike substitutions may occur. Though we review the report and make efforts to correct it, we do recommend that the report be read carefully in proper context to recognize any text inaccuracies. Dictated by: Keyon Rosales M.D. on 03/16/2024 at 17:02 Approved by: Keyon Rosales M.D. on 03/16/2024 at 17:04
== END ==
PROVIDERS: Referring Provider Family Medicine; Visit Provider Family Medicine
DX: O24.414 Gestational diabetes mellitus in pregnancy, insulin controlled (principal); O10.912 Unspecified pre-existing hypertension complicating pregnancy, second trimester; Z3A.24 24 weeks gestation of pregnancy
CPT/HCPCS: 76816

== ENCOUNTER 2024-03-16 10:55 | Outpatient (CLI) | payer OTHER, MEDICAID, SELFPAY | END 2024-03-16 11:50 | disposition home or self-care (01) | LOC: LABOR 11:21 → OB 03-19 10:25 | PROVIDERS: Referring Provider Family Medicine; Visit Provider Family Medicine | DX: O24.913 Unspecified diabetes mellitus in pregnancy, third trimester (principal); O13.3 Gestational [pregnancy-induced] hypertension without significant proteinuria, third trimester; Z79.4 Long term (current) use of insulin; Z3A.35 35 weeks gestation of pregnancy; O24.414 Gestational diabetes mellitus in pregnancy, insulin controlled | CPT/HCPCS: 59025; 76816; G0378; G0379 ==

== ENCOUNTER 2024-03-20 14:51 | Outpatient (CLI) | payer OTHER, MEDICAID, SELFPAY ==
--- NOTE | 2024-03-20 15:34 | PM.OBTRLD ---
Visit Information Visit Information Date of evaluation: 03/20/24 Primary OB Provider: Rita Armstrong Comments/Additional reasons for admission: 24yo G1Po at 36w2d here due to elevated BP at home and LE edema. She states her BP this morning was 140/93. She notes significantly increased swelling recently. She has had a mild headache as well. No RUQ pain, vision changes. She is feeling her baby move regularly. COUNTS INCLUDE 234 BEDS AT THE [facility] Medical History (Updated 03/18/24 @ 10:44 by Rita Armstrong MD) Gastroenteritis Depression Anxiety Acid reflux Concussion Blood in stool Right ankle sprain Adopted Surgical History (Updated 08/22/23 @ 08:11 by Alecia Lo RN) [place] teeth extracted Family History (Updated 08/22/23 @ 09:04 by Alecia Lo RN) Sister Asthma Food allergy Mother DVT (deep venous thrombosis) Social History (Updated 05/16/20 @ 09:52 by Pao Champion PA-C) marital status: number of children: 0 household members: spouse lives independently: Yes caregiver/support person: No housing: apartment pets and animals: Yes (3 cats, is managing litter boxes) education level: college occupational status: employed current occupational exposures/hazards: Yes special adrian needs: No travel history: recent seatbelt use: always helmet use: Yes water heater temp set < 120 deg: Yes working smoke detector in home: Yes fire extinguisher in home: Yes carbon monox detector in home: Yes firearms in home: No do you feel safe at home: Yes Smoking Status: Former smoker quit status: considering quitting second hand exposure: Yes ( smokes MJ and vapes outdoors) alcohol intake: former substance use type: marijuana and crack/cocaine during the past year weight has: increased > 10 lbs well-balanced diet: rarely or never daily servings fruits/ve-1 caffeine: Yes (Mostly decaf coffee in AM) Type(s) of exercise: none additional social history: encouraged to apply for [facility] Objective Labs 03/20/24 15:44 03/20/24 15:44 Evaluation Evaluation Baseline heart rate: 130 Variability: Moderate (11-25) monitor accelerations: Present Monitor Decelerations: Absent Diagnosis, Plan/Disposition Final Diagnosis (1) Chronic hypertension affecting : Status: Acute Plan/Disposition Plan: 24yo G1Po at 36w2d here due to elevated BP at home and LE edema in the setting of chronic HTN. BP in excellent range. Pt now asymptomatic. NST reactive. Labs reassuring. Stable for d/c home with f/u appt tomorrow. OB Disposition: home
[2024-03-20 15:58] LABS: Add Manual Diff / Slide Review NO; Basophils Absolute Auto 0 /uL (0-100); Basophils Percent Auto 0.4 % (0-2); Eosinophils Absolute Auto 100 /uL (0-450); Eosinophils Percent Auto 1.1 % (2-4); Hematocrit 27.2 % (36-46); Hemoglobin 8.9 g/dL (12.0-16.0); Lymphocytes Absolute Auto 1800 /uL (1100-4500); Mean Corpuscular HGB Conc 32.8 % (30-36); Mean Corpuscular Hemoglobin 24.6 PG (26-34); Monocytes Absolute Auto 600 /uL (0-900); Monocytes Percent Auto 5.7 % (3-14); Neutrophils Absolute Auto 7400 /uL (1500-7000); Neutrophils Percent Auto 74.8 % (50-75); Platelet Count 236 X10^3/uL (150-400); Red Blood Cell Count 3.62 X10^6/uL (4.0-5.2); Red Cell Distribution Width 15.7 % (11.6-14.8); White Blood Cell Count 9.8 X10^3/uL (4.5-11.0)
[2024-03-20 16:24] LABS: Alanine Aminotransferase 19 IU/L (<35); Albumin Globulin Ratio 0.9 (1.0-2.8); Alkaline Phosphatase 161 U/L (38-126); Aspartate Aminotransferase 20 IU/L (14-36); BUN Creatinine Ratio 7.8 (6-22); Bilirubin Total 0.3 mg/dL (0.2-1.3); Blood Urea Nitrogen 6 mg/dL (7-17); Calcium 8.7 mg/dL (8.4-10.2); Carbon Dioxide 22 mmol/L (22-32); Chloride 110 mmol/L (98-107); Estimated Glomerular Filt Rate > 60 mL/min (>60); Globulin 3.3 g/dL (1.7-4.1); Glucose 92 mg/dL (70-100); HEMOLYSIS < 15 (0-50); Potassium 3.7 mmol/L (3.4-5.1); Sodium 137 mmol/L (137-145); Total Protein 6.3 g/dL (6.3-8.2)
[2024-03-20 17:56] LABS: Creatinine Urine Random 103.83 mg/dL; Protein (Total) Urine Random 24 mg/dL (0-12); Protein Creatinine Ratio Urine 0.23 GRAM/24H
== END 2024-03-20 16:08 | disposition home or self-care (01) ==
LOC: OB 03-22 12:18
PROVIDERS: Referring Provider Family Medicine; Visit Provider Family Medicine
DX: O10.913 Unspecified pre-existing hypertension complicating pregnancy, third trimester (principal); Z3A.36 36 weeks gestation of pregnancy
CPT/HCPCS: 59025; 80053; 82570; 84156; 85025; G0378; G0379

== ENCOUNTER → 2024-03-21 09:05 | Outpatient (CLI) | payer OTHER, MEDICAID, SELFPAY ==
[2024-03-22 11:23] LABS: Strep Grp B PCR NEG for Grp B Strep
== END ==
PROVIDERS: Visit Provider Family Medicine
DX: Z34.80 Encounter for supervision of other normal pregnancy, unspecified trimester (principal)
CPT/HCPCS: 87653

== ENCOUNTER → 2024-03-22 16:29 | Outpatient (CLI) | payer OTHER, MEDICAID, SELFPAY ==
--- NOTE | 2024-03-22 16:30 | DIAB.GDFU ---
Follow-up Gestational Diabetes Assessment Name: Fantasma JayFebruary Date: 03/22/24 Time: 430-5p Dx: Gestational Diabetes Provider: Nathaniel GUY: 04/15/24 Weeks: 36 Presents for GDM f/u virtually via I[facility] portal. Planned induction this Tuesday. Reports improved in range FBG since increase in pm NPH Last insulin injection the morning of 03/19. Ran out of money due to buying baby supplies. Has also ran out of meter testing strips and insulin since 03/19. States she thinks she does not need insulin or strips since she is being induced this Tuesday. Pharmacy is [facility]. Has had issues with [facility] pharmacy reportedly, ie not getting info about insulin injections, charging her for a missing insulin pen. Wants to not worry about getting insulin if it is not covered. RD called pharmacy and both strips and insulin are no cost with insurance. 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 Questions about PNV . Eating out less. Eating small/frequent meals/snacks per report. Self-Monitoring Blood Glucose: Checking FBG and 2 hour pc. Setting alarms to remind her to check postprandial readings. Missing quite a bit of data due to either forgetting or sleeping through testing. Date Pre Post Pre Post Pre Post 03/15 83 131 7/5 104 89 7/6 97 106 150 Inc NPH to 20 03/18 92 7/8 85 7/9 Ran out of strips and insulin 03/21 03/22 Diabetes Medications: 20u NPH AM 15u NPH PM Pertinent Labs: screen 167 H OGTT 98 H, 180, 172 H, 129 Intervention: This participant was very receptive. Provided appropriate educational handouts. Discussed the following topics: PNV recs Troubleshooting insulin and meter supplies Nutrition recs during Risk of omission of insulin and potential hypoglcyemia Recent blood sugar results and impact of food and hormones Review of macronutrient recommendations during Benefits, resources, and nutrition for recommendations for nutrition and physical activity recommendations for T2DM risk reduction OGTT at 6-12 weeks Checking blood sugars twice per week (goal: fasting <100 mg/dL and 2 hour pc <140 mg/dL) until 6 week check-up HgA1c q 1-3 years. Goals: Move iron supplement to bedside and take daily- met Be sure to check BG at 1 or 2 hours- in progress Set an alarm for BG checks met Next time feeling ill, check BG and BP- not discussed Make note in log book when having yogurt and granola- not discussed Wear CGM- d/c supervisor international reservations pen needles- met supervisor international reservations strips and insulin today- new Follow-up: RIANNA SCHUSTER follow-up prn. Encouraged her to call tomorrow if she cannot access insulin or supplies. She agreed to this plan. Estella Yadav RDN, [facility] Certified Diabetes Care and Momd Teacher T: [phone] F: [phone] [email or web address] Thank you for this referral
== END ==
LOC: DIET 16:29
PROVIDERS: Referring Provider Family Medicine
DX: O24.414 Gestational diabetes mellitus in pregnancy, insulin controlled (principal); Z3A.36 36 weeks gestation of pregnancy; Z71.3 Dietary counseling and surveillance
CPT/HCPCS: G0108

== ENCOUNTER 2024-03-25 19:25 | Inpatient (IN) | payer OTHER, MEDICAID, SELFPAY ==
[2024-03-25 20:35] LABS: Add Manual Diff / Slide Review NO; Basophils Absolute Auto 0 /uL (0-100); Basophils Percent Auto 0.4 % (0-2); Eosinophils Absolute Auto 200 /uL (0-450); Eosinophils Percent Auto 1.3 % (2-4); Hematocrit 27.6 % (36-46); Hemoglobin 8.9 g/dL (12.0-16.0); Lymphocytes Absolute Auto 2200 /uL (1100-4500); Lymphocytes Percent Auto 17.5 % (25-40); Mean Corpuscular HGB Conc 32.3 % (30-36); Mean Corpuscular Hemoglobin 24.3 PG (26-34); Mean Corpuscular Volume 75.1 fL (80-100); Monocytes Absolute Auto 600 /uL (0-900); Neutrophils Absolute Auto 9600 /uL (1500-7000); Neutrophils Percent Auto 75.8 % (50-75); Platelet Count 256 X10^3/uL (150-400); Red Blood Cell Count 3.67 X10^6/uL (4.0-5.2); Red Cell Distribution Width 15.9 % (11.6-14.8); White Blood Cell Count 12.7 X10^3/uL (4.5-11.0)
[2024-03-25] MEDS: miSOPROStoL 25 MCG TABLET 50 MCG PO (20:49)
[2024-03-25 21:46] LABS: HEMOLYSIS < 15 (0-50); Potassium 4.2 mmol/L (3.4-5.1)
[2024-03-25 21:47] LABS: Alanine Aminotransferase 23 IU/L (<35); Albumin 3.5 g/dL (3.5-5.0); Albumin Globulin Ratio 0.9 (1.0-2.8); Alkaline Phosphatase 176 U/L (38-126); Aspartate Aminotransferase 24 IU/L (14-36); BUN Creatinine Ratio 12.5 (6-22); Bilirubin Total 0.4 mg/dL (0.2-1.3); Blood Urea Nitrogen 11 mg/dL (7-17); Calcium 9.5 mg/dL (8.4-10.2); Carbon Dioxide 21 mmol/L (22-32); Chloride 110 mmol/L (98-107); Estimated Glomerular Filt Rate > 60 mL/min (>60); Globulin 3.8 g/dL (1.7-4.1); Glucose 76 mg/dL (70-100); Sodium 137 mmol/L (137-145); Total Protein 7.3 g/dL (6.3-8.2)
[2024-03-26] MEDS: miSOPROStoL 25 MCG TABLET 50 MCG PO ×2 (01:53→06:10)
[2024-03-26 09:22] VITALS: BP 134/66; PULSE 79
[2024-03-26] MEDS: LABETALOL 100 MG TABLET 300 MG PO (09:22)
--- NOTE | 2024-03-26 09:47 | P.HPOB_ITS ---
OB HPI Date/Time Date of admission: 03/25/24 Date Patient Seen: 03/26/24 History of Present Condition Chief complaint: Induction GUY Calculator 2 Estimated Delivery Date Method Current WG Current Estimate 04/15/24 LMP (Certain) 37w 1d Estimated Gestational Age (weeks): 37w1d : 1 Para: 0 Narrative: 24yo at 37w1d here for IOL due to uncontrolled GDMA2. Pt denies any contractions, vaginal bleeding, LOF prior to presentation. After cytotec overnight, with some mild cramping. She is feeling her baby move regularly. Pts was complicated by chronic HTN, initially requiring increasing doses of PO Labetalol but more recently stable on 300mg BID. Negative pre- eclampsia/HELLP labs throughout . Pt with GDMA2 on insulin, requiring increasing dosing. The pt was not consistent with checking her blood sugars at home, however when checked they were majority above goal. At 33 weeks the baby was LGA at the 95th percentile, and then 91st percentile at 35 weeks with an RE of 6.1. The decision was made to proceed with IOL due to uncontrolled GDM. care: good care, initiated at week # (9) and pounds weight gain (21) Dating criteria OB: LMP confirmed by 1st trimester US Ultrasounds: normal 1st trimester US and normal mid trimester US Obstetrical complications: gestational diabetes and other (LGA) Medical complications OB: cardiovascular (chronic HTN) Indications Indication for induction OB: gestational diabetes (uncontrolled) Preadmission Labs Last OB Lab Results: 2 Blood Type A Positive 03/25/24 20:15 Antibody Screen Negative 03/25/24 20:15 Hct 27.6 % (36-46) L 03/25/24 20:15 Hgb 8.9 g/dL (12.0-16.0) L 03/25/24 20:15 Hep Bs Antigen Negative s/c (NEGATIVE) 10/18/23 11:11 Hepatitis C Antibody Negative s/c (NEGATIVE) 10/18/23 11:11 Rubella Antibody 47.6 IU/mL (>15) 10/18/23 11:11 VZV IgG Antibody 292 index (Immune >165) 10/18/23 11:11 Glucose 1 Hr 50 gm 167 mg/dL (76-139) H 01/16/24 10:50 Group B Strep (PCR) Neg for grp b strep 03/21/24 09:05 Glucose Tolerance Testing: Fasting (98), 1 hr (180), 2 hr (172) and 3 hr (129) -: Chlamydia screen: negative, Gonorrhea screen: negative and Urine: negative Genetic Screens: Cell-free DNA: Normal External Labs -: Urine: negative Prior (ies) Past Pregnancies Del. Date GA/Weeks Labor Lgth Wt Sex Route Outcome Anesthesia Place Delv Breastfeed Preg Comp Name 03/12/21 6-7 elective Delivery Date: 03/12/21 Last Updated by: Alecia Lo RN D&C, no complications Evaluation Evaluation Baseline heart rate: 135 Variability: Moderate (11-25) monitor accelerations: Present Monitor Decelerations: Absent Contraction Frequency (minutes): 3 Uterine Contraction Intensity: Mild Status: Category l Dilation (cm): 2 Effacement (%): 40 Dilation: 1-2 cm Effacement: 40-50% station: -1 Position of cervix: anterior Consistency: soft Jeffries score: 8 PFSH Medical History (Updated 03/18/24 @ 10:44 by Rita Armstrong MD) Gastroenteritis Depression Anxiety Acid reflux Concussion Blood in stool Right ankle sprain Adopted Surgical History (Updated 08/22/23 @ 08:11 by Alecia Lo RN) [place] teeth extracted Family History (Updated 08/22/23 @ 09:04 by Alecia Lo RN) Sister Asthma Food allergy Mother DVT (deep venous thrombosis) Social History (Updated 05/16/20 @ 09:52 by Pao Champion PA-C) marital status: number of children: 0 household members: spouse lives independently: Yes caregiver/support person: No housing: apartment pets and animals: Yes (3 cats, is managing litter boxes) education level: college occupational status: employed current occupational exposures/hazards: Yes special adrian needs: No travel history: recent seatbelt use: always helmet use: Yes water heater temp set < 120 deg: Yes working smoke detector in home: Yes fire extinguisher in home: Yes carbon monox detector in home: Yes firearms in home: No do you feel safe at home: Yes Smoking Status: Former smoker quit status: considering quitting second hand exposure: Yes ( smokes MJ and vapes outdoors) alcohol intake: former substance use type: marijuana and crack/cocaine during the past year weight has: increased > 10 lbs well-balanced diet: rarely or never daily servings fruits/ve-1 caffeine: Yes (Mostly decaf coffee in AM) Type(s) of exercise: none additional social history: encouraged to apply for [facility] Meds Home Medications and Allergies Home Medications Medication Instructions Recorded Confirmed Type ferrous sulfate 325 mg (65 mg 325 mg PO DAILY 08/22/23 03/21/24 History iron) tablet (Feosol) vit no.95-ferrous 1 tab PO DAILY 08/22/23 03/21/24 History fumarate 28 mg-folic acid 800 mcg tablet ( Multivitamins) ondansetron 4 mg disintegrating 4 mg PO Q8H #30 tabs 09/15/23 03/21/24 Rx tablet aspirin 81 mg tablet,delayed 81 mg PO DAILY #90 tabs 10/18/23 03/21/24 Rx release (Adult Low Dose Aspirin) labetalol 300 mg tablet 300 mg PO BID #60 tabs 11/01/23 03/21/24 Rx hydroxyzine pamoate 25 mg capsule 25 mg PO BEDTIME PRN for anxiety 12/22/23 03/21/24 Rx (Vistaril) #60 caps glucometer #1 01/19/24 03/21/24 Rx lancets #200 01/19/24 03/21/24 Rx Double Electric Breast Pump and #1 02/10/24 03/21/24 Rx Supplies nystatin 100,000 unit/gram topical 1 applic topical BID #60 grams 02/16/24 03/21/24 Rx powder pen needle, diabetic 31 gauge x #100 02/24/24 03/21/24 Rx 1/4 glucose test strips #200 ea 03/16/24 03/21/24 Rx insulin NPH isoph U-100 human 100 See Rx Instructions SUBCUT BID #15 03/16/24 03/21/24 Rx unit/mL (3 mL) subcutaneous pen mL (Humulin N NPH U-100 Insulin KwikPen) Allergies Allergy/AdvReac Type Severity Reaction Status Date / Time No Known Drug Allergies Allergy Unverified 03/21/24 08:59 OB Exam Resp Effort & Inspection: normal respiratory effort Auscultation: clear to auscultation bilaterally Cardio Rate: regular rate Rhythm: regular rhythm Heart Sounds: S1 normal, S2 normal and no murmurs GI Inspection: non-distended Palpation: Yes soft and No tender Presentation: vertex Objective Labs 03/25/24 20:15 03/25/24 21:18 Labs: Laboratory Results - last 24 hr 03/25/24 03/25/24 20:15 21:18 WBC 12.7 H RBC 3.67 L Hgb 8.9 L Hct 27.6 L MCV 75.1 L MCH 24.3 L MCHC 32.3 RDW 15.9 H Plt Count 256 Neut % (Auto) 75.8 H Lymph % (Auto) 17.5 L Spink % (Auto) 5.0 Eos % (Auto) 1.3 L Baso % (Auto) 0.4 Neut # (Auto) 9600 H Lymph # (Auto) 2200 Spink # (Auto) 600 Eos # (Auto) 200 Baso # (Auto) 0 Sodium 137 Potassium 4.2 Chloride 110 H Carbon Dioxide 21 L BUN 11 Creatinine 0.88 Estimated GFR > 60 BUN/Creatinine Ratio 12.5 Glucose 76 Calcium 9.5 Total Bilirubin 0.4 AST 24 ALT 23 Alkaline Phosphatase 176 H Total Protein 7.3 Albumin 3.5 Globulin 3.8 Albumin/Globulin Ratio 0.9 L Blood Type A Positive Antibody Screen Negative Assessment and Plan Assessment and Plan Assessment and Plan narrative: 24yo at 37w1d here for IOL due to uncontrolled GDMA2. also complicated by chronic HTN on Labetalol, no evidence of pre-eclampsia/HELLP at this point (pr/cr pending from admission), and LGA. GBS negative, Rh positive. Pt received 3 doses of cytotec overnight, with some cervical change. After informed consent, mcginnis catheter place this morning and inflated with 60cc of NS, gentle traction applied. - Expectant management, anticipate - FHT reassuring, intermittent monitoring okay - GBS negative, no prophylaxis indicated - Desires natural methods for pain control - ACHS and 1hr postprandial blood sugars until in active labor, blood sugars thus far all in good range - Continue home Labetalol 300mg BID - Remove mcginnis after 12hrs if doesn't come out prior Time-Based Coding :: [TOTAL MINUTES] spent with patient and on the chart (including review of chart, obtaining history, exam, reviewing outside data, placing orders, documenting exam and treatment plan, and counseling patient) on [DATE].
[2024-03-26 11:14] LABS: Creatinine Urine Random 74.58 mg/dL; Protein (Total) Urine Random 16 mg/dL (0-12); Protein Creatinine Ratio Urine 0.21 GRAM/24H
[2024-03-26] MEDS: SODIUM CHLORIDE 0.9% 1,000 ML 100 ML IV (11:22)
[2024-03-26] MEDS: OXYTOCIN PREMIX 30 UNIT/500 ML PLAST..BAG IV (11:23)
--- NOTE | 2024-03-26 13:13 | PM.OBPNLAB ---
Date/Time Date Patient Seen: 03/26/24 Time Patient Seen: 13:13 Pain Control Pain control: tolerating well Pelvic Exam Dilation (cm): 5 Effacement (%): 60 station: -1 Amniotic membrane status: Ruptured Comments: After informed consent, AROM performed with clear fluid present Contractions Pitocin rate (mU/min): 4 Contraction frequency (min): 6 Contraction pattern: Irregular Contraction intensity: Mild Status status: Category l Heart Rate Baseline: 130 Monitor Accelerations: Present Monitor Decelerations: Absent Monitor Variability: Moderate Assessment and Plan Comments: 24yo at 37w1d here for IOL due to uncontrolled GDMA2. also complicated by chronic HTN on Labetalol, no evidence of pre-eclampsia/HELLP at this point (pr/cr pending from admission), and LGA. GBS negative, Rh positive. Pt received 3 doses of cytotec overnight, mcginnis then placed that fell out. Pt initiated on Pitocin. AROM performed with clear fluid present. - Continue pitocin, titrate as tolerated - FHT reassuring, intermittent monitoring okay - Desires natural methods for pain control - q4hr blood sugars, all in good range thus far - Continue home Labetalol 300mg BID
[2024-03-26] MEDS: LIDOCAINE 1% 20 ML INJ (17:50)
--- NOTE | 2024-03-26 18:17 | P.PNOB_ITS ---
Date/Time Date Patient Seen: 03/26/24 Time Patient Seen: 15:00 Pain Control Pain control: other (nitrous oxide) Pelvic Exam Dilation (cm): 6 Effacement (%): 70 station: -1 Amniotic membrane status: Ruptured Contractions Contraction frequency (min): 6 Contraction pattern: Irregular Contraction intensity: Mild Status status: Category l Heart Rate Baseline: 140 Monitor Accelerations: Absent Monitor Decelerations: Variable (recurrent) Monitor Variability: Moderate Assessment and Plan Comments: Late entry: 24yo at 37w1d here for IOL due to uncontrolled GDMA2. also complicated by chronic HTN on Labetalol, no evidence of pre-eclampsia/HELLP at this point (pr/cr pending from admission), and LGA. GBS negative, Rh positive. Pt received 3 doses of cytotec overnight, mcginnis then placed that fell out. Pt initiated on Pitocin. AROM performed with clear fluid present. Pt now with recurrent variable decels, getting progressively deeper. IUPC placed with amnioinfusion initiated. Minimal cervical change since last check. - Pitocin stopped due to decels - Amnioinfusion 500cc bolus, then 300cc/hr - Close monitoring, if not improving will need to proceed with primary c- section, pt aware - Desires natural methods for pain control - q4hr blood sugars, all in good range thus far
--- NOTE | 2024-03-26 18:18 | PM.OBPRVD ---
Labor & Delivery Delivery date: 03/26/24 Cervical ripening method: per misoprostal protocol Induction method: per pitocin protocol Delivery augmentation: rupture of membranes Delivery monitor: external FHT and external uterine Route of delivery: Episiotomy description: None L&D Laceration Description: Perineal - 2nd Degree Quantitative Blood Loss: 827 Anesthesia Type: None Complications: hemorrhage Narrative: PROCEDURE: at 37w1d presented for IOL for uncontrolled GDM and was admitted to Labor and Delivery. She received 3 doses of cytotec and then mcginnis catheter was placed that fell out. Pitocin was initiated. The patient progressed through the 1st stage over 3 hours. ROM occured at 13:08 with clear fluid. The pt had recurrent variable decels, and IUPC was placed with amnioinfusion initiated. Pain was controlled with natural methods. The patient progressed through the 2nd stage over 18 minutes and delivered a viable male with APGARs 9/9 at 17:33 via . The pt delivered on hands and knees, and had multiple significant gushes of blood when transitioning to her back with the baby. The cord was cut and clamped after it stopped pulsating. The placenta delivered with gentle cord traction, and appeared complete. The perineum and vagina were inspected with 2nd degree perineal laceration repaired with 2-O Vicryl in the usual fashion. Needle and sponge counts were correct.? The vagina was inspected and no items were left in situ. Rosalind was doing well with Yelena, her and her , Higinio, at bedside. PREPROCEDURE DIAGNOSIS: Intrauterine at 37w1d Uncontrolled GDMA2 Chronic HTN LGA GBS negative RH positive POSTPROCEDURE DIAGNOSIS: Intrauterine at 37w1d, delivered Same as preprocedure hemorrhage Baby 1: gender: Male Presentation: vertex Position: Left Occiput Anterior Placenta delivery description: Spontaneous Cord Vessel Description: 3 Vessels score (1 min): 9 score (5 min): 9 weight: 7 lb 8.425 oz Plan for aftercare: Routine care (continue blood sugar monitoring)
[2024-03-26] MEDS: IBUPROFEN 600 MG TABLET PO (20:17)
[2024-03-26] MEDS: INSULIN NPH 100 UNIT/ML 10ML VIAL 10 UNIT SUBCUT (22:35)
[2024-03-27] MEDS: IBUPROFEN 600 MG TABLET PO ×2 (06:08→12:20)
[2024-03-27 06:45] LABS: Add Manual Diff / Slide Review NO; Basophils Absolute Auto 100 /uL (0-100); Basophils Percent Auto 0.4 % (0-2); Eosinophils Absolute Auto 0 /uL (0-450); Eosinophils Percent Auto 0.2 % (2-4); Hematocrit 26.1 % (36-46); Hemoglobin 8.4 g/dL (12.0-16.0); Lymphocytes Absolute Auto 1800 /uL (1100-4500); Lymphocytes Percent Auto 12.5 % (25-40); Mean Corpuscular HGB Conc 32.3 % (30-36); Mean Corpuscular Hemoglobin 24.3 PG (26-34); Mean Corpuscular Volume 75.2 fL (80-100); Monocytes Absolute Auto 800 /uL (0-900); Monocytes Percent Auto 5.8 % (3-14); Neutrophils Absolute Auto 11500 /uL (1500-7000); Neutrophils Percent Auto 81.1 % (50-75); Platelet Count 267 X10^3/uL (150-400); Red Blood Cell Count 3.48 X10^6/uL (4.0-5.2); Red Cell Distribution Width 15.5 % (11.6-14.8); White Blood Cell Count 14.2 X10^3/uL (4.5-11.0)
[2024-03-27 09:30] VITALS: BP 110/56; PULSE 83
[2024-03-27] MEDS: DOCUSATE 100 MG CAPSULE PO (09:30)
[2024-03-27] MEDS: FERROUS SULFATE 325 MG TABLET PO (09:30)
[2024-03-27] MEDS: PRENATAL VIT,CALC/IRON/FOLIC 1 TABLET 1 TAB PO (09:30)
[2024-03-27] MEDS: ACETAMINOPHEN 325 MG TABLET 650 MG PO (10:52)
[2024-03-27] MEDS: CALCIUM CARBONATE 500 MG TAB PO (10:52)
--- NOTE | 2024-03-27 16:49 | P.DS_ITS ---
Discharge Providers Provider Date of admission: 03/25/24 19:25 Discharge Date: 03/27/24 Primary care physician: Doctor Cheng MD Consults: 03/27/24 18:15 Consult to Finishing Supervisor [employer] Routine Comment: Discharge provider: Rita Armstrong MD Summary Hospital Course Date Patient Seen: 03/27/24 Diagnoses: Intrauterine at 37w1d Uncontrolled GDMA2 Chronic HTN LGA GBS negative RH positive hemorrhage Hospital Course: The pt presented for IOL. She received cytotec followed by mcginnis catheter, and then pitocin. AROM was performed with clear fluid present. IUPC was placed and amnioinfusion initiated due to recurrent variable decels. The pt progressed to complete and had an of a viable baby boy. A 2nd degree perineal laceration was repaired. , there were no complications. At the time of discharge she was voiding, ambulating, and passing flatus without difficulty. Her lochia was decreasing appropriately. Her pain was well controlled. She was with good latch. Her BP after delivery was in good range, and her Labetalol was held. She will f/u in 3 days for BP and blood sugar check. Peripartum Data Delivery Method: Natural Vaginal Laceration Description: Perineal - 2nd Degree Episiotomy description: None Procedures: Spontaneous vaginal delivery complications: none [place] 1: Gender: Male Disposition of : home Time Spent with Patient Time attestation: Total time spent providing and/or coordinating discharge services: Objective Labs 03/27/24 06:36 03/25/24 21:18 Labs: Laboratory Results - last 24 hr 03/27/24 06:36 WBC 14.2 H RBC 3.48 L Hgb 8.4 L Hct 26.1 L MCV 75.2 L MCH 24.3 L MCHC 32.3 RDW 15.5 H Plt Count 267 Neut % (Auto) 81.1 H Lymph % (Auto) 12.5 L Finney % (Auto) 5.8 Eos % (Auto) 0.2 L Baso % (Auto) 0.4 Neut # (Auto) 23831 H Lymph # (Auto) 1800 Finney # (Auto) 800 Eos # (Auto) 0 Baso # (Auto) 100 Exam Vital Signs (past 8 hours): - 03/27/24 09:30 Pulse Rate 83 Blood Pressure 110/56 L Narrative Exam Narrative: Gen: NAD, sitting comfortably in bed, appears well CV: RRR, no murmurs Resp: clear to auscultation bilaterally Abd: soft, appropriately tender, fundus firm and below the umbilicus, nondistended Ext: no edema Discharge Plan Discharge Plan Patient Disposition: Home Discharge orders & Medications Prescriptions: New acetaminophen 325 mg Tablet 650 mg PO Q6HR PRN (Reason: Pain, Mild (1-3)) Qty: 30 0RF docusate sodium 100 mg Capsule 100 mg PO DAILY Qty: 30 0RF ibuprofen 600 mg Tablet 600 mg PO Q6HR PRN (Reason: Pain, Mild (1-3)) Qty: 30 0RF Continued hydroxyzine pamoate [Vistaril] 25 mg capsule 25 mg PO BEDTIME PRN (Reason: for anxiety ) Qty: 60 0RF nystatin 100,000 unit/gram powder 1 applic topical BID Qty: 60 0RF PNV cmb#[id number]-ferrous fumarate-FA [ Multivitamins] 28 mg iron- 800 mcg tablet 1 tab PO DAILY ferrous sulfate [Feosol] 325 mg (65 mg iron) tablet 325 mg PO DAILY Discontinued ondansetron 4 mg tablet,disintegrating 4 mg PO Q8H Qty: 30 0RF Humulin N NPH Insulin KwikPen 100 unit/mL (3 mL) insulin pen See Rx Instructions SUBCUT BID Qty: 15 2RF Rx Instructions: Take 20 units in the morning, 15 units in the evening aspirin [Adult Low Dose Aspirin] 81 mg tablet,delayed release (DR/EC) 81 mg PO DAILY Qty: 90 3RF labetalol 300 mg tablet 300 mg PO BID Qty: 60 3RF No Action (DME) glucose test strips See Rx Instructions .Route .MEDSUPPLY Qty: 200 0RF Rx Instructions: As directed to check glucose 4 times daily (DME) Double Electric Breast Pump and Supplies See Rx Instructions .ROUTE .MEDSUPPLY Qty: 1 0RF Rx Instructions: As directed (DME) glucometer See Rx Instructions .Route .MEDSUPPLY Qty: 1 0RF Rx Instructions: As directed to check glucose 4 times daily (DME) lancets See Rx Instructions .Route .MEDSUPPLY Qty: 200 0RF Rx Instructions: As directed to check glucose 4 times daily (DME) pen needle, diabetic 31 gauge x 1/4 needle See Rx Instructions .Route Qty: 100 2RF Rx Instructions: As directed, to be used twice daily to inject insulin Follow up/Referrals: Rita Armstrong MD [Physician] - 05/07/24 2:00 pm Diet/Activity/Treatments Diet: Diet as Tolerated and Regular Skin/Wound/Dressing Care Report to your healthcare provider any signs of infection, such as:: chills, fever, increased pain and unusual drainage Visit Report/Discharge Packet Instructions: DI for Depression Stand Alone Forms: Discharge: Care, Patient Portal/API, Stroke Signs & Symptoms Discharge Data Primary Care Provider: Miscellaneous,Doctor Discharges patient from system. Discharge Date/Time: 03/27/24 17:40
== END 2024-03-27 17:40 | disposition home or self-care (01) | DRG 560 ==
PROVIDERS: Admitting Provider Family Medicine; Referring Provider Family Medicine; Visit Provider Family Medicine
DX: O24.429 Gestational diabetes mellitus in childbirth, unspecified control (principal); O10.92 Unspecified pre-existing hypertension complicating childbirth; O70.1 Second degree perineal laceration during delivery; O76 Abnormality in fetal heart rate and rhythm complicating labor and delivery; O36.63X0 Maternal care for excessive fetal growth, third trimester, not applicable or unspecified; Z79.4 Long term (current) use of insulin; Z37.0 Single live birth; Z3A.37 37 weeks gestation of pregnancy
CPT/HCPCS: 36415; 59050; 59200; 59400; 59409; 80053; 82570; 84156; 85025; 86850; 86900; 86901; G0379; J2590

== ENCOUNTER → 2024-05-10 09:37 | Outpatient (CLI) | payer OTHER, MEDICAID, SELFPAY ==
[2024-05-10 11:24] LABS: Glucose Fasting 93 mg/dL (70-100)
[2024-05-10 11:59] LABS: Glucose 1 Hour 179 mg/dL (70-170)
[2024-05-10 12:02] LABS: Glucose Tol Interpretation INTERPRETATION
[2024-05-10 13:16] LABS: Glucose 2 Hour 134 mg/dL (70-140)
== END ==
PROVIDERS: Referring Provider Family Medicine; Visit Provider Family Medicine
DX: O24.419 Gestational diabetes mellitus in pregnancy, unspecified control (principal)
CPT/HCPCS: 36415; 82951; 82952

== ENCOUNTER → 2024-11-05 12:43 | Outpatient (CLI) | payer OTHER, SELFPAY | PROVIDERS: Visit Provider Physician Assistant | DX: R30.0 Dysuria (principal) | CPT/HCPCS: 87086 ==

== ENCOUNTER → 2024-11-13 11:47 | Outpatient (CLI) | payer OTHER, SELFPAY ==
--- NOTE | 2024-11-13 11:49 | DI.RAD.S_ITS ---
PROCEDURE: XR HIP W PEL IF DONE LT 2V INDICATIONS: HIP PAIN TECHNIQUE: 2 views of the hip were acquired. COMPARISON: None. FINDINGS: Bones: No fractures or dislocations. No suspicious bony lesions. The visualized pelvic ring appears intact. Soft tissues: No suspicious soft tissue calcifications or masses. IMPRESSION: No acute bony abnormality. Approved by: Kirk Lepe M.D. on 11/13/2024 at 18:08
== END ==
LOC: RAD 11:48
PROVIDERS: PCP Family Medicine; Referring Provider Family Medicine; Visit Provider Family Medicine
DX: M25.552 Pain in left hip (principal)
CPT/HCPCS: 73502